=== PATIENT | female | born 1990 | race Hispanic/Latino ===

== ENCOUNTER 2024-10-03 05:52 | Inpatient (IN) | payer BC ==
[2024-10-03 08:41] VITALS: BMI 28.3
[2024-10-03] MEDS ORDERED: HYDROcodone/Acetaminophen 5/325 mg Tablet PO PRN ×2 (09:00)
[2024-10-03] MEDS ORDERED: Ondansetron PF 4 MG/2 ML Vial IVP PRN (09:00)
[2024-10-03] MEDS ORDERED: Lactated Ringer's 1,000 ML IV SCH (09:00)
[2024-10-03] MEDS ORDERED: hydrALAZINE 20 MG/ML VIAL SLOW IVP PRN (09:00)
[2024-10-03] MEDS ORDERED: Promethazine HCl 25 MG/ML VIAL IM PRN (09:00)
[2024-10-03 09:17] LABS: Hematocrit 30.5 % (34.9-44.5); Hemoglobin 9.8 g/dL (12.0-15.5); Mean Corpuscular HGB CONC 32.1 g/dL (32.0-36.0); Mean Corpuscular Hemoglobin 27.7 pg (27.0-33.0); Mean Corpuscular Volume 86.2 fL (81.6-98.3); Mean Platelet Volume 11.4 fL (7.4-10.4); Platelet Count 248 10x3/uL (150-450); RBC Distribution Width 14.3 % (11.5-14.5); Red Blood Cell (RBC) Count 3.54 10x6/uL (3.90-5.03); White Blood Cell (WBC) Count 6.55 10x3/uL (3.5-10.5)
[2024-10-03 09:50] LABS: HBsAg Index 0.18 S/CO (0-0.99); Hep B Surf Ag - L&D Non-Reactive S/CO (NonReactive)
[2024-10-03 09:51] LABS: Syphilis Antibody Nonreactive (Nonreactive); Syphilis Antibody Index 0.05 S/CO (<1.00 Non-Reactive)
[2024-10-03] MEDS: Misoprostol 100 MCG TAB VAG SCH (10:25)
[2024-10-03] MEDS: Oxytocin 30 units/NS 500 ML 500 ML IV SCH (14:52)
[2024-10-03] MEDS: fentaNYL 50 mcg/mL 1 mL Vial SLOW IVP PRN (20:17)
[2024-10-03] MEDS ORDERED: Misoprostol 200 MCG TAB ONE (21:47)
[2024-10-03] MEDS: Lidocaine 1% (PF) 30 ML VIAL SC PRN (22:58)
[2024-10-04] MEDS: Ibuprofen 800 MG TAB PO PRN (00:57)
[2024-10-04] MEDS: Oxytocin 30 units/NS 500 ML 500 ML IV SCH (01:02)
[2024-10-04] MEDS ORDERED: HYDROcodone/Acetaminophen 5/325 mg Tablet PO PRN ×2 (01:31)
[2024-10-04] MEDS ORDERED: Benzocaine-Menthol 82.5 ML CAN TOP PRN (01:31)
[2024-10-04] MEDS ORDERED: Oxytocin 30 units/NS 500 ML 500 ML IV SCH (01:31)
[2024-10-04] MEDS ORDERED: Lanolin Ointment 7 GM TUBE TOP PRN (01:31)
[2024-10-04] MEDS ORDERED: Preparation H Ointment 28 GM TUBE PR PRN (01:31)
[2024-10-04] MEDS ORDERED: Bisacodyl 10 MG SUPP PR PRN (01:31)
[2024-10-04] MEDS ORDERED: Milk Of Magnesia 30 ML UDCUP PO PRN (01:31)
[2024-10-04] MEDS ORDERED: Boostrix 0.5 ML (Tdap) VIAL (>/=7 yrs of age) IM ONE (01:31)
[2024-10-04] MEDS ORDERED: hydrALAZINE 20 MG/ML VIAL SLOW IVP PRN (01:31)
[2024-10-04] MEDS ORDERED: Ondansetron PF 4 MG/2 ML Vial IVP PRN (01:31)
[2024-10-04 07:47] LABS: #Basophils Less than 0.03 10x3/uL (0.0-0.2); #Eosinophils Less than 0.03 10x3/uL (0.0-0.5); #Monocytes 0.85 10x3/uL (0.0-1.1); #Neutrophils 9.89 10x3/uL (1.5-8.4); %Basophils 0.1 % (0.0-2.0); %Eosinophils 0.1 % (0.0-6.0); %Lymphocytes 19.3 % (18.0-47.0); %Monocytes 6.3 % (0.0-10.0); %Neutrophils 73.8 % (40.0-75.0); Hematocrit 23.5 % (34.9-44.5); Hemoglobin 7.6 g/dL (12.0-15.5); Mean Corpuscular HGB CONC 32.3 g/dL (32.0-36.0); Mean Corpuscular Hemoglobin 27.6 pg (27.0-33.0); Mean Corpuscular Volume 85.5 fL (81.6-98.3); Mean Platelet Volume 11.7 fL (7.4-10.4); Platelet Count 196 10x3/uL (150-450); RBC Distribution Width 14.3 % (11.5-14.5); Red Blood Cell (RBC) Count 2.75 10x6/uL (3.90-5.03)
[2024-10-04] MEDS: Docusate 100 MG CAP PO SCH (09:24)
[2024-10-04] MEDS: Ferrous Sulfate 325 MG TAB PO SCH (09:24)
[2024-10-04] MEDS: Prenatal Vitamin 1 TAB PO SCH (09:24)
[2024-10-04] MEDS: Ibuprofen 800 MG TAB PO SCH (09:24)
[2024-10-04 16:12] VITALS: BP 119/55; TEMP 98.4
== END 2024-10-04 16:30 | disposition home or self-care (01) | DRG 807 ==
LOC: CSHLD 08:14 → CSHPP 10-04 01:15
PROVIDERS: ADMIT Obstetrics & Gynecology; ATTEND Obstetrics & Gynecology
PROC: 10E0XZZ Delivery of Products of Conception, External Approach (ICD-10-PCS; principal; 2024-10-03)
PROC: 3E0P7VZ Introduction of Hormone into Female Reproductive, Via Natural or Artificial Opening (ICD-10-PCS; 2024-10-03)
PROC: 10907ZC Drainage of Amniotic Fluid, Therapeutic from Products of Conception, Via Natural or Artificial Opening (ICD-10-PCS; 2024-10-03)
PROC: 0HQ9XZZ Repair Perineum Skin, External Approach (ICD-10-PCS; 2024-10-03)
DX: O70.0 First degree perineal laceration during delivery (principal); Z37.0 Single live birth; Z33.3 Pregnant state, gestational carrier; Z3A.39 39 weeks gestation of pregnancy; O69.81X0 Labor and delivery complicated by cord around neck, without compression, not applicable or unspecified; O99.02 Anemia complicating childbirth; D50.9 Iron deficiency anemia, unspecified
CPT/HCPCS: 36415; 85025; 85027; 86780; 86850; 86900; 86901; 87340; J2590; J3010